=== PATIENT | male | born 1960 | race Two or more races ===

== ENCOUNTER → 2025-01-04 | Outpatient (BNVA) | payer MEDICARE, MEDICAID, SELFPAY | END | disposition home or self-care (01) | PROVIDERS: PCP Family Medicine; Referring Provider Family Medicine; Visit Provider Urology | DX: N40.1 Benign prostatic hyperplasia with lower urinary tract symptoms (principal); N13.8 Other obstructive and reflux uropathy; Z80.42 Family history of malignant neoplasm of prostate; E66.9 Obesity, unspecified; Z68.38 Body mass index [BMI] 38.0-38.9, adult; E78.00 Pure hypercholesterolemia, unspecified; I25.10 Atherosclerotic heart disease of native coronary artery without angina pectoris; I25.2 Old myocardial infarction; Z95.1 Presence of aortocoronary bypass graft; Z87.891 Personal history of nicotine dependence | CPT/HCPCS: 81003; 99212; G0463 ==